=== PATIENT | female | born 1980 | race Caucasian/White ===

== ENCOUNTER 2025-07-01 11:06 | Outpatient (AMB) | payer MEDICAID, SELFPAY ==
[2025-07-01 11:20] VITALS: BP 135/81; PULSE 80; RESP 18; TEMP 36.2; O2SAT 98; BMI 19.9
--- NOTE | 2025-07-01 11:20 | AMB.OBINITIA ---
Vital Signs 07/01/25 11:20 Height 1.68 m Height Method Stated Weight 55.962 kg Weight Measurement Method Standing Scale BMI 19.9 BP 135/81 H Blood Pressure Source Automatic Cuff Blood Pressure Location Left Upper Arm Position Standing Respiration 18 Pulse 80 Pulse Source Monitor Temp 97.2 F Temp Source Oral Pulse Oximetry (%) 98 Oxygen Delivery Method Room Air Allergies/Home Meds Allergies & Medications Allergies No Known Allergies Allergy (Verified 07/01/25 11:21) Medication Reconciliation No Known Home Medications 07/01/25 [History Confirmed 07/01/25] Intake Visit Data Collection New Patient or Established: New Patient (never been to [facility]) Reason for Visit:: OBI Seen by Clinical Staff ONLY (RN/MA): No Breaker Oiler Required: No Do You Feel Safe at Home: Yes Authorities Contacted: N/A PCP or OBGYN visit in last 3 months: Yes Hx Now: Yes Are you currently on any form of Control: No Last menstrual period: 04/26/25 Pain Present Currently: No Pain Scale Used: Campbell-Rangel/Numerical Pain scale:: 0 Smoking Status Smoking Status: Never smoker Immunizations Flu Vaccine in the Last 12 Months: No Flu Vaccine Exclusion Criteria: No Exclusion Criteria Questionnaires Covid-19 Vaccine Questionnaire Has patient been vacinated for Covid-19 Have you been vacinated for Covid-19: No PHQ-9 PHQ-2 Over the last 2 weeks, how often have you been bothered by any of the following problems? 1. Little interest or pleasure in doing things: not at all 2. Feeling down, depressed, or hopeless: not at all Total score: 0 PHQ-9 3. Trouble falling or staying asleep, or sleeping too much: Not at all 4. Feeling tired or having little energy: Not at all 5. Poor appetite or overeating: Not at all 6. Feeling bad about yourself - or that you are a failure or have let yourself or your family down: Not at all 7. Trouble concentrating on things, such as reading the newspaper or watching television: Not at all 8. Moving or speaking so slowly that other people could have noticed? - Or the opposite - being so fidgety or restless that you have been moving around a lot more than usual: not at all 9. Thoughts that you would be better off or of hurting yourself in some way: Not at all Total score: 0 If you checked off any problems, how difficult have these problems made it for you to do your work, take care of things at home, or get along with other people?: not difficult at all Source: Developed by Drs. Dany Kuo, Tosha Clark, Shaggy Pretty and colleagues, with an educational norman from [employer]. Depression screen completed yes Social History Living Situation History Marital Status: Single Lives With: Family Housing: House Tobacco History Smoking Status: Never smoker Second Hand Smoke Exposure: No Alcohol History Alcohol Intake: Never Domestic Abuse History Do You Feel Safe at Home: Yes History of Present Illness HPI Narrative 45-year-old 4 para 0. Patient has a history of 3 SABs. This is a planned . She is currently taking vitamins. No other medications. Her and her partner are here and they are both happy about the . She reports that her cycles are regular from 28 to 31 days. She thinks her last normal period was April 26, 2025. Patient had some vaginal bleeding May 10 and she was seen at [facility]. They did not a transvaginal ultrasound and on May 10 patient was 5 weeks. Reports no bleeding now. Patient has some nausea. History of smoking cigarettes and she started when she was 18 years old. And she states that she has been stopping and starting off-and-on. But since found out she is . Smoke. She thinks she might his have a history of genital warts but she does not see any now. And a history of abnormal Pap with cryo. Denies diabetes. Denies hypertension. OB Initial Visit OB Flowsheet OB Flowsheet Initial Weight: Not Recorded Date <del>?</del> EGA Weight BP Alb Glu CTX Pres Fundal ht FHR Mov Dilation Station Effacement Hx Notes Visit Note 07/01/25 <del>?</del> 9w 3d 55.962 kg 135/81 absent unknown 5 absent This is a 45-year-old 4 para 0. Patient has history of 3 abortions all of them first trimester. She had confirmation of at [address] [place] [address]. Patient has a history of irregular cycles. So she has poor dates they. They are trying to get so she began using an ovulation stick and she thought she was ovulating the end of May. Last. April 26, 2025. And this would give a due date February 19, 2026. Patient states she had an ER visit at [facility] on May 10. And by ultrasound she was measuring 5 weeks that. Patient had some spotting around 09 May. No bleeding now a little bit of nausea. OB panel, TSH, hemoglobin A1c. Beta quant's x 2. OB stat sono outpatient disc. Discussed SAB precautions. Continue prenatals. And return in 2 weeks for follow-up Menstrual History Menstrual reliability: definite Flow: normal Menstrual regularity: regular Monthly: Yes Age at menarche: 14 On control pills at conception: No OB History : 4 Para: 0 Hx # Pregnancies: 0 Hx Total # of Abortions (Spontaneous & Elective): 3 (PATIENT HAD THREE ABORTIONS NOT MISCARRIAGES ) # of Living Children: 0 Infection History & Risk Evaluation History of STDs: none HIV risk evaluation: low risk Hepatitis B risk evaluation: low risk Patient or partner has history of Genital Herpes: No Varicella/chicken pox status: immunized Genetic Screening & History Genetic Screening/Teratology Counseling - Includes patient, baby's father, or anyone in either family with: 1. Patient's age 35 years or older as of estimated date of delivery: Yes 2. Thalassemia (Rwandan, Stateless, Mediterranean, or Background); MCV less than 80: No 3. Neural Tube Defect (Meningomyelocele, Spina Bifida, or Anencephaly): No 4. Congenital Heart Defect: No 5. Down Syndrome: No 6. Cayetano-Sachs (Ashkenazi Confucianist, Cajun, Panamanian Honduran): No 7. Mary Disease (Ashkenazi Confucianist): No 8. Familial Dysautonomia (Ashkenazi Confucianist): No 9. Sickle Cell Disease or Trait (): No 10. Hemophilia or other blood disorders: No 11. Muscular Dystrophy: No 12. Cystic Fibrosis: No 13. Anjelica's Chorea: No 14. Mental Retardation/Autism: No 16. Maternal Metabolic Disorder (EG,TYPE 1 Diabetes, PKU): No 17. Patient or baby's father had a child with defects not listed above: No 18. Recurrent loss or a stillbirth: No 19. Medications (including supplements, vitamins, herbs or otc drugs)/illicit/recreational drugs/alcohol since last menstrual period: No 20. Any other: No Infection History 1. Live with someone with TB or exposed to TB: No 2. Rash or viral illness since last menstrual period: No 3. Hepatitis B,C: No Other (see comments) Source: [employer] Review of Systems Review of Systems Systems Reviewed: All systems reviewed, normal except as documented Exam General Limitations: no limitations General Appearance: alert, in no apparent distress, comfortable, cooperative, healthy appearing, well developed and well groomed Head Head exam: atraumatic, normocephalic and normal inspection ENT ENT exam: Present normal exam, normal oropharynx and mucous membranes moist Neck Neck exam: Present normal inspection, full ROM and trachea midline Chest Chest inspection: Present normal inspection and symmetric chest wall rise Resp Respiratory exam: Present normal lung sounds bilaterally Card Cardiovascular exam: Present regular rate, normal rhythm and normal heart sounds Abdominal Abdominal exam: Present soft and normal bowel sounds Psych Psychiatric exam: Present normal affect and normal mood Office Procedures [facility] LOC & Office Proc's Nursing/Assessment Patient Status: Initial/New Patient OB Clinic Nursing Assessment: Medication Reconciliation, Update PMH in EMR and Vital Signs OB Clinic Coordination of Care: Consent,records obtained, informed consent, Education Simp Pt/Fam, Lab and Imaging orders, Results/Orders obtained and Staff clarify orders Special Needs: Heart tones New Patient Charge New Patient Point Assignment: [id number] New Patient Point Charge: LOCKER ROOM MANAGER Level 3 ([id number]) Assessment & Plan Diagnosis / Problem List (1) Encounter for supervision of high risk in first trimester, antepartum: Status: Acute (2) Advanced maternal age (AMA) in : Status: Acute Plan Schedule OB sono here at [facility]. OB panel, A1c, TSH today with beta quant x 2 patient will do hCG today and then on the seventh after [place] patient will follow-up for results. We discussed SAB precautions and signs symptoms. Continue her prenatals. I will schedule appointment with MFM after we get confirmation of viability. Return in 2 weeks Additional Plan Follow Up: 2 Weeks (obc)
== END 2025-07-01 11:59 | disposition home or self-care (01) ==
LOC: HODSOBC 11:06
PROVIDERS: PCP Nurse Practitioner Family; Referring Provider Nurse Practitioner Family; Supervising Provider Advanced Practice Midwife; Visit Provider Advanced Practice Midwife
DX: O09.521 Supervision of elderly multigravida, first trimester (principal); O09.291 Supervision of pregnancy with other poor reproductive or obstetric history, first trimester; O26.21 Pregnancy care for patient with recurrent pregnancy loss, first trimester; Z3A.09 9 weeks gestation of pregnancy; Z87.891 Personal history of nicotine dependence
CPT/HCPCS: 99203; G0463